=== PATIENT | male | born 2000 | race Caucasian/White ===

== ENCOUNTER 2020-01-01 17:59 | Emergency (ER) | payer OTHER ==
[~2020-01-01] VITALS: Ht 182.9 cm; Wt 115.2 kg
[2020-01-01 18:09] VITALS: BP 125/65
[2020-01-01] MEDS ORDERED: HYDROCODONE/APAP 10/325MG TABLET ONE (18:21)
[2020-01-01] MEDS ORDERED: IBUPROFEN 400 MG TABLET ONE (18:21)
[2020-01-01] MEDS ORDERED: HYDROCODONE/APAP 10/325MG TABLET PO ONE (18:30)
[2020-01-01] MEDS ORDERED: IBUPROFEN 400 MG TABLET PO ONE (18:30)
--- NOTE | 2020-01-01 19:17 | NUR ---
Patient discharged to home in stable condition. Written and verbal after care instructions given. Patient verbalizes understanding of instruction.
== END 2020-01-01 19:17 | disposition home or self-care (01) ==
LOC: ER 18:06
DX: S82.61XA Displaced fracture of lateral malleolus of right fibula, initial encounter for closed fracture (principal); Z98.890 Other specified postprocedural states; X58.XXXA Exposure to other specified factors, initial encounter; Y93.67 Activity, basketball; Y92.89 Other specified places as the place of occurrence of the external cause; Y99.8 Other external cause status
CPT/HCPCS: 73610-TC; 73630-TC